=== PATIENT | male | born 1990 | race Caucasian/White ===

== ENCOUNTER 2022-03-29 13:26 | Inpatient (IN) | payer SELFPAY ==
[2022-03-29 13:48] VITALS: BP 134/90; PULSE 82; RESP 15; TEMP 36.8; O2SAT 97
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
[2022-03-29 14:13] LABS: Basophils # 0.1 10^3/uL (0.0-0.1); Basophils % 0.7 %; Eosinophils # 0.2 10^3/uL (0.0-0.8); Eosinophils % 2.4 %; Hemoglobin 15.7 g/dL (11.7-16.6); Lymphocytes # 3.1 10^3/uL (0.8-4.8); Lymphocytes % 36.2 %; Mean Corpuscular HGB Conc 34.9 g/dL (30.0-36.0); Mean Corpuscular Volume 88.9 fl (80-94); Mean Platelet Volume 9.8 fL (7.4-10.4); Monocytes # 0.7 10^3/uL (0.2-0.9); Monocytes % 8.6 %; Neutrophils # 4.48 10^3/uL (1.8-7.7); Neutrophils % 51.8 %; Nucleated Red Blood Cells % 0 %; Platelet Count 368 10^3/cmm (130-400); Red Blood Count 5.06 10^6/uL (4.1-5.3); White Blood Count 8.7 10^3/uL (4.0-10.0)
[2022-03-29 14:32] LABS: Alanine Aminotransferase 51 U/L (0-41); Albumin Level 4.8 g/dL (3.5-5.2); Alcohol Level 88 mg/dL (0-10); Alkaline Phosphatase 76 IU/L (40-130); Aspartate Amino Transferase 28 U/L (0-40); Blood Urea Nitrogen 12 mg/dL (6-20); Calcium 9.7 mg/dL (8.5-10.5); Carbon Dioxide 22 mmol/L (22-29); Chloride 104 mmol/L (98-107); Globulin 3.5 g/dL (1.3-4.6); Glomerular Filtration Rate 98.4 mL/min (90-130); Glucose 108 mg/dL (65-115); Osmolality Calculated 288 mOsm/kg (285-295); Sodium 139 mmol/L (136-145); Total Bilirubin 0.2 mg/dL (0.15-1.2); Total Protein 8.3 g/dL (6.6-8.7)
[2022-03-29 14:38] LABS: Acetaminophen < 5.0 ug/mL (10-30); Salicylate < 0.3 mg/dL (3-10)
[2022-03-29 15:01] LABS: Amphetamines Screen Urine Negative (Negative); Barbiturates Screen Urine Negative (Negative); Benzodiazepines Screen Urine Negative (Negative); Cocaine Screen Urine Negative (Negative); Opiate Screen Urine Negative (Negative); PCP Screen Urine Negative (Negative); THC Screen Urine Positive (Negative)
[2022-03-29 16:23] VITALS: BP 124/83; PULSE 98; RESP 17; TEMP 36.7; O2SAT 97
[2022-03-29] MEDS: nicotine 21 mg Patch 1 PATCH TRANSDERMA (18:32)
[2022-03-29 21:10] VITALS: BP 143/88; PULSE 84; RESP 18; TEMP 36.8; O2SAT 95
[2022-03-29] MEDS: trazodone 50 mg Tablet PO (21:29)
[2022-03-30 06:00] VITALS: BP 129/91; PULSE 93; RESP 16; TEMP 36.8; O2SAT 98
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
[2022-03-30] MEDS: nicotine 21 mg Patch 1 PATCH TRANSDERMA (12:34)
[2022-03-30 14:00] VITALS: BP 140/82; PULSE 92; RESP 18; TEMP 36.6; O2SAT 98
[2022-03-30 20:00] VITALS: BP 144/94; PULSE 108; RESP 18; TEMP 36.8; O2SAT 96
[2022-03-30] MEDS: trazodone 50 mg Tablet PO (20:43)
[2022-03-31 06:00] VITALS: BP 113/71; PULSE 81; RESP 16; TEMP 36.7; O2SAT 96
--- NOTE | 2022-03-31 08:37 | PC.NURSE ---
DENIES SI/HI AND AVH AT THIS TIME. PT IS HOPING TO BE RELEASED TODAY AND THEN GO GET THERAPY. DENIES PAIN. CALM AND COOPERATIVE WITH STAFF.
[2022-03-31 11:25] VITALS: BP 113/71; PULSE 81; RESP 16; TEMP 36.7; O2SAT 96
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
== END 2022-03-31 11:38 | disposition home or self-care (01) | DRG 882 ==
LOC: ER 15:09 → NP 15:53
PROVIDERS: Physician Assistant; Admitting Provider Psychiatry & Neurology Psychiatry; Emergency Provider Family Medicine; Visit Provider Psychiatry & Neurology Psychiatry
DX: F43.12 Post-traumatic stress disorder, chronic (principal); R45.851 Suicidal ideations; F32.A Depression, unspecified
CPT/HCPCS: 80053; 80306; 80307; 85025; 97150; 97165; 99285

== ENCOUNTER 2022-08-03 10:14 | Emergency (ER) | payer SELFPAY ==
[2022-08-03 10:20] VITALS: BP 145/90; PULSE 62; RESP 18; TEMP 36.8; O2SAT 97; BMI 36.9
--- NOTE | 2022-08-03 10:43 | W.ED.GENADLT ---
HPI - General Adult General: Chief complaint: General Medical Stated complaint: Mouth swollen Time Seen by Provider: 08/03/22 10:24 History of Present Illness: Patient is a 31-year-old male comes to the ED with swelling of mouth. Patient says last night he noticed underneath the right side of his tongue he had some swelling and soreness there. Today he woke up and the swelling got bigger and a little more painful and tender. Denies any trouble breathing, lip swelling or tongue swelling. He can feel the swelling when he palpates underneath the right side of his jaw. Denies any dental pain. Associated symptoms: Deny chest pain, dyspnea, headache(s), nausea, rash, palpitations or vomiting Review of Systems Const: Denies: fever(s), chills or fatigue Eyes: Denies: change in vision or eye discomfort ENMT: Reports: mouth pain ( tenderness and swelling on right side of tongue); Denies: throat pain, odynophagia, nasal discharge or nasal congestion Card: Denies: chest pain, palpitations, edema, swelling of feet/ankles, dyspnea on exertion or orthopnea Resp: Denies: dyspnea, productive cough or non-productive cough GI: Denies: abdominal pain, nausea, vomiting, diarrhea, constipation or hematochezia : Denies: flank pain, difficulty urinating, dysuria or hematuria Musc: Denies: neck pain, back pain or extremity swelling Skin/Breast: Denies: rash or new lesions Neuro: Denies: headache(s), numbness in extremities or weakness in extremities [facility] ED PFSH: Medical History No pertinent family history Psychiatric care Social History Smoking and tobacco status: current every day smoker Physical Exam Const: COMMON NORMALS: no acute distress, patient oriented x3 and alert HENMT: COMMON NORMALS: normocephalic HEAD & SCALP: normocephalic MOUTH: Normal oral and palatal mucosa present THROAT: posterior oropharynx normal and uvula midline OTHER: Patient has swollen and tender right submandibular gland. Neck/C-Spine: COMMON NORMALS: supple GENERAL: Yes normal visual inspection Resp: COMMON NORMALS: normal respiratory effort, No retractions, No use of accessory muscles and clear to auscultation bilaterally AUSCULTATION: clear to auscultation bilaterally Cardio: COMMON NORMALS: regular rate, regular rhythm, S1 normal heart sound present, S2 normal heart sound present, No gallops present (Cardio), No clicks present (Cardio), No murmurs present (Cardio) and Peripheral pulses 2+ throughout RATE: regular rate RHYTHM: regular rhythm HEART SOUNDS: S1 normal heart sound present and S2 normal heart sound present PERIPHERAL PULSES: Peripheral pulses 2+ throughout GI: COMMON NORMALS: Normal to inspection, nondistended, normoactive bowel sounds present, Soft to palpation, non-tender and no masses PALPATION: Yes Soft to palpation : COMMON NORMALS: Yes no CVA tenderness BLADDER/KIDNEY EXAM: Yes no CVA tenderness Back/Pelvis: COMMON NORMALS: no CVA tenderness Extremity: COMMON NORMALS: normal to inspection Neuro: COMMON NORMALS: patient oriented x3 SENSORIUM/ORIENTATION: Yes alert GAIT: Yes Normal gait present Skin: GENERAL SKIN EXAM: dry skin Course Vital Signs: Vital signs: Vital Signs Temperature 98.2 F 08/03/22 10:20 Pulse Rate 63 08/03/22 11:07 Respiratory Rate 18 08/03/22 10:20 Blood Pressure 137/78 08/03/22 11:07 Pulse Oximetry 98 08/03/22 11:07 Oxygen Delivery Me thod 08/03/22 10:53 [facility] - General Adult Medical Decision Making Patient is a 31-year-old male comes to the ED with swelling under right side of tongue. Symptoms started last night. Denies any trouble breathing, lip or tongue swelling. Vitals are stable and he appears nontoxic in no acute distress or pain. Upon exam patient has a swollen right submandibular gland likely caused from stone obstruction. He was given a dose of Decadron here in the ED and discharged home on clindamycin to cover possible infection that is swelling gland. He was informed on how to promote saliva secretions by chewing gum or sucking on any sour candies. Return to ED precautions given. Follow-up with PCP within the next week for reevaluation. Patient understood and agreed with plan. Discharge Plan Discharge Patient Disposition: Home Clinical Impression: Submandibular swelling Condition: Stable Prescriptions: New clindamycin HCl 150 mg capsule 300 mg PO QID 7 Days Qty: 56 0RF Discharge Orders: Discharge ED (Routine); Ordered 08/03/22 Ordered By: Frank Vasques Discharge Diet: Regular Discharge Activity: Increase activity as tolerated Patient Instructions: Sialoadenitis (ED) Activity Restrictions/Additional Instructions: Follow-up with medical provider as directed in the next 5 to 7 days reevaluation. Massage right submandibular swelling area to help reduce swelling. Promote salivary excretions by sucking on sour candies, gum to help reduce the swelling. Take medications as prescribed. Return to the ER or your medical provider if condition worsens. Please read and understand discharge instructions. Thank you for choosing [facility] for your healthcare needs today. Please realize this is an emergency room and that we are providing you with a medical screening exam and this may not be complete and all inclusive of all the testing and or work up that you may need to determine your ailment or severity of your illness. It is very important that you follow up as instructed or that you return to the Emergency Department should you have concerns or if your condition changes or worsens in any way. Stand Alone Forms: Work/School Release Coding Level of Care Code ED Patient Care Manager for [facility] Exam Comprehensive
[2022-08-03] MEDS: dexamethasone 10 mg/mL INJ IM (10:50)
[2022-08-03 10:53] VITALS: BP 145/90; PULSE 68; O2SAT 98
[2022-08-03 11:07] VITALS: BP 137/78; PULSE 63; O2SAT 98
== END 2022-08-03 11:09 | disposition home or self-care (01) ==
PROVIDERS: Emergency Provider Physician Assistant
DX: M79.89 Other specified soft tissue disorders (principal); F17.210 Nicotine dependence, cigarettes, uncomplicated
CPT/HCPCS: 96372; 99284; J1100

== ENCOUNTER 2023-02-13 18:07 | Emergency (ER) | payer SELFPAY ==
[2023-02-13 18:18] VITALS: BP 130/87; PULSE 73; RESP 18; TEMP 36.7; O2SAT 96; BMI 36.7
--- NOTE | 2023-02-13 18:24 | W.ED.DENTAL ---
HPI - Dental/Oral General: Chief complaint: Dental/Oral Stated complaint: dental pain/possible infection Time Seen by Provider: 02/13/23 18:24 History of Present Illness: 32-year-old male patient comes in today for concerns of left upper jaw dental discomfort. Patient had removal of teeth to the upper jaw last week. Patient reports tenderness to the left side and not feeling well. Patient has been using Augmentin, and hydrocodone for his pain and treatment of dental postsurgical care. Patient is alert and oriented. Patient appears nontoxic. Associated symptoms: Denies fever(s) Review of Systems Const: Reports: malaise; Denies: fever(s) Eyes: Denies: change in vision ENMT: Reports: dental pain Card: Denies: chest pain Resp: Denies: dyspnea GI: Denies: abdominal pain, nausea or vomiting : Reports: flank pain Musc: Denies: neck pain or back pain Skin/Breast: Denies: rash PFSH ED PFSH: Medical History No pertinent family history Psychiatric care Social History Smoking and tobacco status: current every day smoker Physical Exam Const: COMMON NORMALS: alert HENMT: COMMON NORMALS: normocephalic HEAD & SCALP: normocephalic MOUTH: Normal oral and palatal mucosa present TEETH & GINGIVA: Yes edentulous (Healing upper jaw full removal of teeth, no drainage or significant abnorma) Neck/C-Spine: COMMON NORMALS: full ROM and no lymphadenopathy Resp: COMMON NORMALS: normal respiratory effort and clear to auscultation bilaterally AUSCULTATION: clear to auscultation bilaterally Cardio: COMMON NORMALS: regular rate and regular rhythm RATE: regular rate RHYTHM: regular rhythm GI: COMMON NORMALS: Soft to palpation and non-tender PALPATION: Yes Soft to palpation : COMMON NORMALS: Yes no CVA tenderness BLADDER/KIDNEY EXAM: Yes no CVA tenderness Back/Pelvis: COMMON NORMALS: no CVA tenderness Extremity: COMMON NORMALS: normal to inspection Neuro: SENSORIUM/ORIENTATION: Yes alert Skin: COMMON NORMALS: turgor normal GENERAL SKIN EXAM: turgor normal Course Vital Signs: Vital signs: Vital Signs Temperature 98.0 F 02/13/23 18:18 Pulse Rate 73 02/13/23 18:18 Respiratory Rate 18 02/13/23 18:18 Blood Pressure 130/87 02/13/23 18:18 Pulse Oximetry 96 02/13/23 18:18 Oxygen Delivery Me thod Room Air 02/13/23 18:18 MDM - Dental/Oral Medical Decision Making Patient comes in due to feeling poorly after dental procedure x1 week. Patient at this time is taking Augmentin and hydrocodone. On exam patient has healing gingiva to the upper plate with full removal of all teeth. No obvious redness or significant swelling or drainage is noted. No facial swelling is noted. Differential diagnosis includes dental infection, malingering, abscess. No sign of abscess was noted. CBC was unremarkable. No signs of serious illness was noted. Patient was given a dose of clindamycin and recommended to take clindamycin 300 mg 4 times a day for the next 7 days. Patient was also given some naproxen ointment to use on a abrasion to his left hand that he was concerned about. Examination of the abrasion noted no foreign body and minimal redness. Patient has an appointment to see his oral surgeon tomorrow and was recommended to keep appointment for further evaluation and treatment as needed. Lab Data 02/13/23 19:31 Laboratory Results WBC 8.8 10^3/uL (4.0-10.0) 02/13/23 19: RBC 4.62 10^6/uL (4.1-5.3) 02/13/23 19:31 Hgb 14.4 g/dL (11.7-16.6) 02/13/23 19: Hct 43.2 % (42.0-52.0) 02/13/23 19: MCV 93.5 fl (80-94) 02/13/23 19: MCH 31.2 pg (28.0-34.0) 02/13/23 19: MCHC 33.3 g/dL (30.0-36.0) 02/13/23 19: RDW 12.5 % (12.1-15.1) 02/13/23 19:31 Plt Count 340 10^3/cmm (130-400) 02/13/23 19: MPV 9.5 fL (7.4-10.4) 02/13/23 19:31 Neut % (Auto) 51.5 % 02/13/23 19:31 Lymph % (Auto) 34.0 % 02/13/23 19:31 [place] % (Auto) 10.4 % 02/13/23 19:31 Eos % (Auto) 3.2 % 02/13/23 19:31 Baso % (Auto) 0.6 % 02/13/23 19:31 Neut # (Auto) 4.52 10^3/uL (1.8-7.7) 02/13/23 19:31 Lymph # (Auto) 3.0 10^3/uL (0.8-4.8) 02/13/23 19:31 [place] # (Auto) 0.9 10^3/uL (0.2-0.9) 02/13/23 19:31 Eos # (Auto) 0.3 10^3/uL (0.0-0.8) 02/13/23 19:31 Baso # (Auto) 0.1 10^3/uL (0.0-0.1) 02/13/23 19:31 Nucleated RBC % (auto) 0 % 02/13/23 19:31 Nucleated RBCs # 0.0 /100WBC 02/13/23 19:31 Discharge Plan Discharge Patient Disposition: Home Clinical Impression: Other dental procedure status, Pain, dental Abrasion of hand, left Qualifiers: Encounter type: initial encounter Qualified Code(s): S60.512A - Abrasion of left hand, initial encounter Condition: Stable Prescriptions: New clindamycin HCl 300 mg capsule 300 mg PO QID 7 Days Qty: 28 0RF mupirocin 2 % ointment 1 applic topical BID Qty: 22 0RF Discharge Orders: Discharge ED (Routine); Ordered 02/13/23 Ordered By: Skip Bell Referrals: Obinna Lacy MD [Primary Care Provider] - Discharge Diet: Usual diet Discharge Activity: Increase activity as tolerated Patient Instructions: Abrasion (ED), Gingivostomatitis (ED) Activity Restrictions/Additional Instructions: Clean wound to hand twice a day and apply antibiotic ointment and cover as needed. Use acetaminophen or ibuprofen for pain. Stop Augmentin and start taking clindamycin as directed. Keep appointment with oral surgeon tomorrow for further evaluation and treatment. Follow-up with primary care for further instructions return to ED for new concerns. Coding Level of Care Code ED Acquisitions Analyst for [facility]
[2023-02-13] MEDS: clindamycin 150 mg Capsule 300 MG PO (18:50)
[2023-02-13] MEDS: mupirocin oint 22 gm 1 APPLIC TOPICAL (19:24)
[2023-02-13 19:46] LABS: Basophils # 0.1 10^3/uL (0.0-0.1); Basophils % 0.6 %; Eosinophils # 0.3 10^3/uL (0.0-0.8); Eosinophils % 3.2 %; Hematocrit 43.2 % (42.0-52.0); Hemoglobin 14.4 g/dL (11.7-16.6); Mean Corpuscular HGB Conc 33.3 g/dL (30.0-36.0); Mean Corpuscular Hemoglobin 31.2 pg (28.0-34.0); Mean Corpuscular Volume 93.5 fl (80-94); Mean Platelet Volume 9.5 fL (7.4-10.4); Monocytes # 0.9 10^3/uL (0.2-0.9); Monocytes % 10.4 %; Neutrophils # 4.52 10^3/uL (1.8-7.7); Neutrophils % 51.5 %; Nucleated Red Blood Cells % 0 %; Platelet Count 340 10^3/cmm (130-400); Red Blood Count 4.62 10^6/uL (4.1-5.3); Red Cell Distribution Width 12.5 % (12.1-15.1); White Blood Count 8.8 10^3/uL (4.0-10.0)
== END 2023-02-13 20:05 | disposition home or self-care (01) ==
PROVIDERS: Emergency Provider Nurse Practitioner Family; PCP Family Medicine
DX: K08.89 Other specified disorders of teeth and supporting structures (principal); S60.512A Abrasion of left hand, initial encounter; Z98.818 Other dental procedure status; F17.210 Nicotine dependence, cigarettes, uncomplicated; X58.XXXA Exposure to other specified factors, initial encounter
CPT/HCPCS: 36415; 85025; 99283

== ENCOUNTER 2025-01-06 16:11 | Emergency (ER) | payer SELFPAY ==
[2025-01-06] VITALS (16 sets, daily range): BP systolic 145–192; BP diastolic 79–94; PULSE 92–114; RESP 22–34; TEMP 37.8; O2SAT 92–94; BMI 40.7
--- NOTE | 2025-01-06 16:36 | XRR_ITS ---
PROCEDURE INFORMATION: Exam: XR Chest Exam date and time: 01/06/2025 4:45 PM Age: 34 years old Clinical indication: Cough and shortness of breath; Additional info: Cough/congestion TECHNIQUE: Imaging protocol: Radiologic exam of the chest. Views: 1 view. COMPARISON: No relevant prior studies available. FINDINGS: Lungs: Unremarkable. No consolidation. Pleural spaces: Unremarkable. No pleural effusion. No pneumothorax. Heart/Mediastinum: Unremarkable. No cardiomegaly. Bones/joints: Unremarkable. XR/XR chest 1V portable [id number] IMPRESSION: No acute findings.
--- NOTE | 2025-01-06 16:40 | W.ED.GENADLT ---
Documented by User: TARYN Velez 01/06/25 16:50 HPI - General Adult General: Chief complaint: Shortness of Breath/Dyspnea Stated complaint: cough, congestion, sob, n/v/d/f Time Seen by Provider: 01/06/25 16:28 Source: patient Mode of arrival: ambulatory Limitations: no limitations History of Present Illness: 34-year-old male presents to the ER complaining of shortness of breath. Patient states for the past 3 days he has been having fevers, chills, body aches, coughing fits, diarrhea, headaches. Patient states he had 1 episode of hemoptysis yesterday morning and described it as a pinkish color. Patient has had some relief with ibuprofen and Tylenol for his fever. His highest temp that he recorded was 102.6 ?F, oral temperature. Patient states he has been experiencing blurry vision with an extensive cough. Patient denies palpitations, vomiting, Onset (ago): day(s) Related Data Home Medications ?Medication ?Instructions ?Recorded ?Confirmed guaifenesin 100 mg/5 mL oral liquid 400 mg PO Q4H PRN Cough 01/06/25 01/06/25 ibuprofen 200 mg tablet (Advil) 1,000 mg PO Q6H PRN Fever Or Pain 01/06/25 01/06/25 Previous Rx's ?Medication ?Instructions ?Recorded albuterol sulfate 90 mcg/actuation 1 inh inhalation Q6H PRN shortness 01/06/25 aerosol inhaler of breath or wheezing #6.7 grams prednisone 20 mg tablet 60 mg (3 x 20 mg) PO ONCE 5 days 01/06/25 #15 tabs Allergies Allergy/AdvReac Type Severity Reaction Status Date / Time No Known Allergies Allergy Verified 03/29/22 17:24 [facility] [place] ED PFS: Medical History (Updated 01/06/25 @ 17:43 by TARYN Berkowitz) No pertinent family history Social History Smoking and tobacco/nicotine status: current every day tobacco/nicotine user Course Vital Signs: Vital signs: Vital Signs Temperature 100.1 F H 01/06/25 16:15 Pulse Rate 100 01/06/25 17:15 Respiratory Rate 28 H 01/06/25 17:15 Blood Pressure 156/94 01/06/25 17:15 Pulse Oximetry 93 01/06/25 17:12 Oxygen Delivery Me thod Room Air 01/06/25 17:12 [facility] - General Adult Lab Data 01/06/25 16:48 01/06/25 16:48 Radiology Impressions Chest X-Ray 01/06/25 16:36 IMPRESSION: No acute findings. Laboratory Results WBC 11.17 10^3/uL (3.29-11.43) 01/06/25 16:48 RBC 5.17 10^6/uL (3.85-5.65) 01/06/25 16:48 Hgb 16.70 g/dL (11.27-16.99) 01/06/25 16:48 Hct 49.3 % (37-53) 01/06/25 16:48 MCV 95.4 fl (82-101) 01/06/25 16:48 MCH 32.3 pg (27-33) 01/06/25 16:48 MCHC 33.9 g/dL (30-55) 01/06/25 16:48 RDW 12.9 % (12.1-15.1) 01/06/25 16:48 Plt Count 254 10^3/cmm (157-399) 01/06/25 16:48 MPV 10.2 fL (7.4-10.4) 01/06/25 16:48 Neut % (Auto) 74.0 % 01/06/25 16:48 Lymph % (Auto) 12.1 % 01/06/25 16:48 [place] % (Auto) 12.7 % 01/06/25 16:48 Eos % (Auto) 0.2 % 01/06/25 16:48 Baso % (Auto) 0.6 % 01/06/25 16:48 Neut # (Auto) 8.27 10^3/uL (1.8-7.7) H 01/06/25 16:48 Lymph # (Auto) 1.4 10^3/uL (0.8-4.8) 01/06/25 16:48 [place] # (Auto) 1.4 10^3/uL (0.2-0.9) H 01/06/25 16:48 Eos # (Auto) 0.0 10^3/uL (0.0-0.8) 01/06/25 16:48 Baso # (Auto) 0.1 10^3/uL (0.0-0.1) 01/06/25 16:48 Nucleated RBC % (auto) 0 % 01/06/25 16:48 Nucleated RBCs # 0.0 /100WBC 01/06/25 16:48 D-Dimer 0.36 ug/mLFEU (0-0.59) 01/06/25 16:48 Sodium 137 mmol/L (136-145) 01/06/25 16:48 Potassium 4.0 mmol/L (3.5-5.1) 01/06/25 16:48 Chloride 100 mmol/L (98-107) 01/06/25 16:48 Carbon Dioxide 24 mmol/L (22-29) 01/06/25 16:48 Anion Gap 17.0 (5-19) 01/06/25 16:48 BUN 11 mg/dL (6-20) 01/06/25 16:48 Creatinine 0.9 mg/dL (0.7-1.2) 01/06/25 16:48 GFR Calculation 96.6 mL/min (90-130) 01/06/25 16:48 Glucose 124 mg/dL (65-115) H 01/06/25 16:48 Calculated Osmolality 285 mOsm/kg (285-295) 01/06/25 16:48 Calcium 9.3 mg/dL (8.5-10.5) 01/06/25 16:48 Total Bilirubin 0.7 mg/dL (0.15-1.2) 01/06/25 16:48 AST 69 U/L (0-40) H 01/06/25 16:48 ALT 109 U/L (0-41) H 01/06/25 16:48 Alkaline Phosphatase 85 U/L (40-130) 01/06/25 16:48 Total Protein 8.2 g/dL (6.6-8.7) 01/06/25 16:48 Albumin 4.4 g/dL (3.5-5.2) 01/06/25 16:48 Globulin 3.8 g/dL (1.3-4.6) 01/06/25 16:48 Influenza A (PCR) Positive (Negative) 01/06/25 16:26 Influenza Type B (PCR) Negative (Negative) 01/06/25 16:26 RSV (PCR) Negative (Negative) 01/06/25 16:26 SARS-CoV-2 (PCR) Negative (Negative) 01/06/25 16:26 Discharge Plan Discharge Patient Disposition: Home Clinical Impression: Influenza A, Acute dehydration Condition: Stable Prescriptions: New prednisone 20 mg tablet 60 mg PO ONCE 5 Days Qty: 15 0RF albuterol sulfate 90 mcg/actuation HFA aerosol inhaler 1 inh inhalation Q6H PRN (Reason: shortness of breath or wheezing) Qty: 6.7 0RF No Action guaifenesin [Robitussin] 100 mg/5 mL Liquid 400 mg PO Q4H PRN (Reason: Cough) ibuprofen [Advil] 200 mg Tablet 1,000 mg PO Q6H PRN (Reason: Fever Or Pain) Discharge Orders: Discharge ED (Routine); Ordered 01/06/25 Ordered By: Je Gomez Referrals: Obinna Lacy MD [Primary Care Provider] - Patient Instructions: Influenza (ED) Activity Restrictions/Additional Instructions: Make sure to drink plenty of fluids at home. Inhaler as prescribed, prednisone as prescribed. Contact precaution until 24 hours fever free. Ibuprofen and Tylenol to control your fevers. Please return with any worsening of breathing or any other concerns that you have. Follow-up with primary care. Stand Alone Forms: Work/School Release Print Language: Senegalese Sign Out Sign Out Data: Patient Sign Out occurred on 01/06/25 at 17:14. Patient's care was discussed, and care was transferred from TARYN Velez to TARYN Berkowitz. Coding Level of Care Code ED [facility] Nurse for [facility]g Fwd Documented by User: TARYN Berkowitz 01/06/25 17:47 HPI - General Adult General: Chief complaint: Shortness of Breath/Dyspnea Stated complaint: cough, congestion, sob, n/v/d/f Time Seen by Provider: 01/06/25 16:28 Related Data Home Medications ?Medication ?Instructions ?Recorded ?Confirmed guaifenesin 100 mg/5 mL oral liquid 400 mg PO Q4H PRN Cough 01/06/25 01/06/25 ibuprofen 200 mg tablet (Advil) 1,000 mg PO Q6H PRN Fever Or Pain 01/06/25 01/06/25 Previous Rx's ?Medication ?Instructions ?Recorded albuterol sulfate 90 mcg/actuation 1 inh inhalation Q6H PRN shortness 01/06/25 aerosol inhaler of breath or wheezing #6.7 grams prednisone 20 mg tablet 60 mg (3 x 20 mg) PO ONCE 5 days 01/06/25 #15 tabs Allergies Allergy/AdvReac Type Severity Reaction Status Date / Time No Known Allergies Allergy Verified 03/29/22 17:24 [facility] [place] ED PFSH: Medical History (Updated 01/06/25 @ 17:43 by TARYN Berkowitz) No pertinent family history Social History Smoking and tobacco/nicotine status: current every day tobacco/nicotine user Course Vital Signs: Vital signs: Vital Signs Temperature 100.1 F H 01/06/25 16:15 Pulse Rate 100 01/06/25 17:15 Respiratory Rate 28 H 01/06/25 17:15 Blood Pressure 156/94 01/06/25 17:15 Pulse Oximetry 93 01/06/25 17:12 Oxygen Delivery Me thod Room Air 01/06/25 17:12 MDM - General Adult Medical Decision Making This patient presented for shortness of breath for the past few days associated with other various symptoms. Also had noted some hemoptysis that was a pinkish color, fevers at home as high as one 2.6. He is a smoker. Arrived with elevated temperature 100.1, tachycardic. However overall nontoxic-appearing. His CBC unremarkable, hemoglobin normal and white count was not elevated. Metabolic panel unremarkable at this time. X-ray did not demonstrate any focal consolidation or other cardiopulmonary findings. He is positive for flu A. Rechecked and states that he has basically had no water intake over the past few days due to inability to keep down. For this he is given IV fluids and instructed to do contact precaution while he recovers. Tamiflu not warranted at this time due to onset of symptoms. Overall stable for discharge home, will provide a work note and have him return if his condition worsens. He is comfortable with this plan. Lab Data 01/06/25 16:48 01/06/25 16:48 Radiology Impressions Chest X-Ray 01/06/25 16:36 IMPRESSION: No acute findings. Laboratory Results WBC 11.17 10^3/uL (3.29-11.43) 01/06/25 16:48 RBC 5.17 10^6/uL (3.85-5.65) 01/06/25 16:48 Hgb 16.70 g/dL (11.27-16.99) 01/06/25 16:48 Hct 49.3 % (37-53) 01/06/25 16:48 MCV 95.4 fl (82-101) 01/06/25 16:48 MCH 32.3 pg (27-33) 01/06/25 16:48 MCHC 33.9 g/dL (30-55) 01/06/25 16:48 RDW 12.9 % (12.1-15.1) 01/06/25 16:48 Plt Count 254 10^3/cmm (157-399) 01/06/25 16:48 MPV 10.2 fL (7.4-10.4) 01/06/25 16:48 Neut % (Auto) 74.0 % 01/06/25 16:48 Lymph % (Auto) 12.1 % 01/06/25 16:48 [place] % (Auto) 12.7 % 01/06/25 16:48 Eos % (Auto) 0.2 % 01/06/25 16:48 Baso % (Auto) 0.6 % 01/06/25 16:48 Neut # (Auto) 8.27 10^3/uL (1.8-7.7) H 01/06/25 16:48 Lymph # (Auto) 1.4 10^3/uL (0.8-4.8) 01/06/25 16:48 [place] # (Auto) 1.4 10^3/uL (0.2-0.9) H 01/06/25 16:48 Eos # (Auto) 0.0 10^3/uL (0.0-0.8) 01/06/25 16:48 Baso # (Auto) 0.1 10^3/uL (0.0-0.1) 01/06/25 16:48 Nucleated RBC % (auto) 0 % 01/06/25 16:48 Nucleated RBCs # 0.0 /100WBC 01/06/25 16:48 D-Dimer 0.36 ug/mLFEU (0-0.59) 01/06/25 16:48 Sodium 137 mmol/L (136-145) 01/06/25 16:48 Potassium 4.0 mmol/L (3.5-5.1) 01/06/25 16:48 Chloride 100 mmol/L (98-107) 01/06/25 16:48 Carbon Dioxide 24 mmol/L (22-29) 01/06/25 16:48 Anion Gap 17.0 (5-19) 01/06/25 16:48 BUN 11 mg/dL (6-20) 01/06/25 16:48 Creatinine 0.9 mg/dL (0.7-1.2) 01/06/25 16:48 GFR Calculation 96.6 mL/min (90-130) 01/06/25 16:48 Glucose 124 mg/dL (65-115) H 01/06/25 16:48 Calculated Osmolality 285 mOsm/kg (285-295) 01/06/25 16:48 Calcium 9.3 mg/dL (8.5-10.5) 01/06/25 16:48 Total Bilirubin 0.7 mg/dL (0.15-1.2) 01/06/25 16:48 AST 69 U/L (0-40) H 01/06/25 16:48 ALT 109 U/L (0-41) H 01/06/25 16:48 Alkaline Phosphatase 85 U/L (40-130) 01/06/25 16:48 Total Protein 8.2 g/dL (6.6-8.7) 01/06/25 16:48 Albumin 4.4 g/dL (3.5-5.2) 01/06/25 16:48 Globulin 3.8 g/dL (1.3-4.6) 01/06/25 16:48 Influenza A (PCR) Positive (Negative) 01/06/25 16:26 Influenza Type B (PCR) Negative (Negative) 01/06/25 16:26 RSV (PCR) Negative (Negative) 01/06/25 16:26 SARS-CoV-2 (PCR) Negative (Negative) 01/06/25 16:26 All radiology interpretation(s) finalized by discharge Discharge Plan Discharge Patient Disposition: Home Clinical Impression: Influenza A, Acute dehydration Condition: Stable Prescriptions: New prednisone 20 mg tablet 60 mg PO ONCE 5 Days Qty: 15 0RF albuterol sulfate 90 mcg/actuation HFA aerosol inhaler 1 inh inhalation Q6H PRN (Reason: shortness of breath or wheezing) Qty: 6.7 0RF No Action guaifenesin [Robitussin] 100 mg/5 mL Liquid 400 mg PO Q4H PRN (Reason: Cough) ibuprofen [Advil] 200 mg Tablet 1,000 mg PO Q6H PRN (Reason: Fever Or Pain) Discharge Orders: Discharge ED (Routine); Ordered 01/06/25 Ordered By: Je Gomez Referrals: Obinna Lacy MD [Primary Care Provider] - Patient Instructions: Influenza (ED) Activity Restrictions/Additional Instructions: Make sure to drink plenty of fluids at home. Inhaler as prescribed, prednisone as prescribed. Contact precaution until 24 hours fever free. Ibuprofen and Tylenol to control your fevers. Please return with any worsening of breathing or any other concerns that you have. Follow-up with primary care. Stand Alone Forms: Work/School Release Print Language: Senegalese Sign Out Sign Out Data: Patient Sign Out occurred on 01/06/25 at 17:14. Patient's care was discussed, and care was transferred from TARYN Velez to TARYN Berkowitz. Coding Level of Care Code ED [facility] Nurse for [facility]in Jacome
[2025-01-06] MEDS: acetaminophen 500 mg Tablet 1000 MG PO (16:41)
[2025-01-06 17:18] LABS: Basophils # 0.1 10^3/uL (0.0-0.1); Basophils % 0.6 %; Eosinophils % 0.2 %; Hematocrit 49.3 % (37-53); Lymphocytes # 1.4 10^3/uL (0.8-4.8); Lymphocytes % 12.1 %; Mean Corpuscular HGB Conc 33.9 g/dL (30-55); Mean Corpuscular Hemoglobin 32.3 pg (27-33); Mean Corpuscular Volume 95.4 fl (82-101); Mean Platelet Volume 10.2 fL (7.4-10.4); Monocytes # 1.4 10^3/uL (0.2-0.9); Monocytes % 12.7 %; Neutrophils # 8.27 10^3/uL (1.8-7.7); Nucleated Red Blood Cells % 0 %; Platelet Count 254 10^3/cmm (157-399); Red Blood Count 5.17 10^6/uL (3.85-5.65); Red Cell Distribution Width 12.9 % (12.1-15.1); White Blood Count 11.17 10^3/uL (3.29-11.43)
--- NOTE | 2025-01-06 17:20 | ECG_ITS ---
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
[2025-01-06 17:31] LABS: Alanine Aminotransferase 109 U/L (0-41); Albumin Level 4.4 g/dL (3.5-5.2); Alkaline Phosphatase 85 U/L (40-130); Aspartate Amino Transferase 69 U/L (0-40); Blood Urea Nitrogen 11 mg/dL (6-20); Calcium 9.3 mg/dL (8.5-10.5); Carbon Dioxide 24 mmol/L (22-29); Chloride 100 mmol/L (98-107); Creatinine Clr Calc Pharmacy 151.3058; Globulin 3.8 g/dL (1.3-4.6); Glomerular Filtration Rate 96.6 mL/min (90-130); Glucose 124 mg/dL (65-115); Osmolality Calculated 285 mOsm/kg (285-295); Sodium 137 mmol/L (136-145); Total Bilirubin 0.7 mg/dL (0.15-1.2); Total Protein 8.2 g/dL (6.6-8.7)
[2025-01-06 17:33] LABS: Influenza A POSITIVE (Negative); Influenza B NEGATIVE (Negative); Respiratory Syncytial Virus Ce NEGATIVE (Negative); SARS-CoV-2 PCR NEGATIVE (Negative)
[2025-01-06 17:34] LABS: D Dimer 0.36 ug/mLFEU (0-0.59)
[2025-01-06] MEDS: sodium chloride 0.9% 1,000 ML 999 ML IV (17:46)
== END 2025-01-06 18:27 | disposition home or self-care (01) ==
PROVIDERS: Physician Assistant; Emergency Provider Physician Assistant; PCP Family Medicine
DX: J10.1 Influenza due to other identified influenza virus with other respiratory manifestations (principal); E86.0 Dehydration; Z72.0 Tobacco use; Z11.52 Encounter for screening for COVID-19
CPT/HCPCS: 36415; 71045; 80053; 85025; 85378; 87637; 93005; 96360; 99285; J7030